=== PATIENT | male | born 1970 | race Caucasian/White ===

== ENCOUNTER 2016-08-25 13:18 | Emergency (ER) | payer MEDICARE ==
[2016-08-25 14:00] LABS: APPEARANCE CLEAR (CLEAR); BILIRUBIN NEGATIVE (NEGATIVE); COLOR AMBER (YELLOW); GLUCOSE NEGATIVE (NEGATIVE); KETONE NEGATIVE (NEGATIVE); LEUKOCYTE ESTERASE NEGATIVE (NEGATIVE); NITRITE NEGATIVE (NEGATIVE); PROTEIN NEGATIVE (NEGATIVE); UROBILINOGEN NORMAL (NORMAL)
[2016-08-25 14:47] LABS: BASOPHILS 0.3 % (0-2); EOSINOPHILS 0.9 % (0-7); HEMATOCRIT 42.8 % (42.0-54.0); HEMOGLOBIN 14.8 g/dL (13.5-17.5); IMMATURE GRANULOCYTES 0.1 % (0-5); LYMPHOCYTES 13.8 % (15-50); MCHC 34.6 g/dL (31.0-37.0); MCV 98.4 fL (80.0-100.0); MEAN PLATELET VOLUME 9.7 fL (7.4-10.4); MONOCYTES 6.6 % (2-11); NEUTROPHILS 78.3 % (40-80); PLATELET COUNT 235 10x3/uL (130-400); RBC 4.35 10x6/uL (4.20-6.10); RDW 13.2 % (11.5-14.5); WBC 9.9 10x3/uL (4.8-10.8)
[2016-08-25 15:02] LABS: ALBUMIN 3.8 g/dL (3.4-5.0); ANION GAP 12.7 mmol/L (8-16); BILIRUBIN - TOTAL 0.7 mg/dL (0.2-1.3); CALCIUM 8.9 mg/dL (8.5-10.1); CARBON DIOXIDE 26.5 mmol/L (21.0-32.0); CREATININE - SERUM 1.3 mg/dL (0.6-1.3); POTASSIUM - SERUM 4.2 mmol/L (3.5-5.1)
[2016-08-25 16:25] LABS: AMYLASE - SERUM 75 U/L (25-115); LIPASE 96 U/L (73-393)
== END 2016-08-25 16:17 | disposition home or self-care (01) ==
LOC: EDBD 13:18 → D.ER 13:18
PROVIDERS: Emergency Medicine; Nurse Practitioner Family
DX: R10.9 Unspecified abdominal pain (principal); N39.0 Urinary tract infection, site not specified

== ENCOUNTER 2018-05-09 14:39 | Emergency (ER) | payer MEDICARE ==
[~2018-05-09] VITALS: Ht 193 cm; Wt 95.5 kg
[2018-05-09 15:15] VITALS: Ht 193 cm; Wt 95.5 kg
[2018-05-09] MEDS ORDERED: VOLTAREN75 MG PO (18:45)
[2018-05-09] MEDS ORDERED: BACLOFEN20 M1 PO (18:45)
[2018-05-09 19:43] VITALS: BP 123/70
== END 2018-05-09 19:43 | disposition home or self-care (01) ==
LOC: D.ER 14:39
DX: S39.012A Strain of muscle, fascia and tendon of lower back, initial encounter (principal); X50.0XXA Overexertion from strenuous movement or load, initial encounter; Y93.89 Activity, other specified; Y92.019 Unspecified place in single-family (private) house as the place of occurrence of the external cause; M62.838 Other muscle spasm

== ENCOUNTER 2018-08-28 07:35 | Emergency (ER) | payer MEDICARE ==
[~2018-08-28] VITALS: Ht 193 cm; Wt 103.4 kg
[~2018-08-28 07:35] MED LIST: BACLOFEN20 M1 PO; VOLTAREN75 MG PO
[2018-08-28 07:38] VITALS: Ht 193 cm; Wt 103.4 kg
[2018-08-28] MEDS ORDERED: VOLTAREN75 MG PO (08:06)
[2018-08-28] MEDS ORDERED: RESTORIL15 MG PO (08:06)
[2018-08-28 08:41] VITALS: BP 128/73
== END 2018-08-28 08:42 | disposition home or self-care (01) ==
LOC: D.ER 07:35
DX: G56.01 Carpal tunnel syndrome, right upper limb (principal)

== ENCOUNTER 2018-12-30 22:06 | Emergency (ER) | payer MEDICARE ==
[~2018-12-30] VITALS: Ht 193 cm; Wt 113.6 kg
[~2018-12-30 22:06] MED LIST changes: +RESTORIL15 MG PO
[2018-12-30 22:14] VITALS: Ht 193 cm; Wt 113.6 kg
[2018-12-30 23:08] LABS: BASOPHILS 0.1 % (0-2); EOSINOPHILS 0.1 % (0-7); HEMATOCRIT 37.8 % (42.0-54.0); HEMOGLOBIN 12.9 g/dL (13.5-17.5); IMMATURE GRANULOCYTES 0.4 % (0-5); LYMPHOCYTES 7.9 % (15-50); MCH 33.4 pg (26.0-34.0); MCHC 34.1 g/dL (31.0-37.0); MCV 97.9 fL (80.0-100.0); MEAN PLATELET VOLUME 9.3 fL (7.4-10.4); MONOCYTES 5.6 % (2-11); NEUTROPHILS 85.9 % (40-80); PLATELET COUNT 250 10x3/uL (130-400); RBC 3.86 10x6/uL (4.20-6.10); RDW 13.2 % (11.5-14.5)
[2018-12-30 23:24] LABS: ALBUMIN 3.7 g/dL (3.4-5.0); ANION GAP 13.1 mmol/L (8-16); BILIRUBIN - TOTAL 0.59 mg/dL (0.2-1.3); CALCIUM 8.4 mg/dL (8.5-10.1); CARBON DIOXIDE 26.1 mmol/L (21.0-32.0); CREATININE - SERUM 1.4 mg/dL (0.6-1.3); POTASSIUM - SERUM 3.2 mmol/L (3.5-5.1); PROTEIN - SERUM 7.3 g/dL (6.4-8.2)
[2018-12-30] MEDS ORDERED: FLOMAX0.4 MG PO (23:25)
[2018-12-30] MEDS ORDERED: ULTRAM50 MG PO (23:25)
[2018-12-30] MEDS ORDERED: ZOFRAN4 MG PO (23:25)
[2018-12-30 23:27] LABS: APPEARANCE CLOUDY (CLEAR); BILIRUBIN NEGATIVE (NEGATIVE); COLOR YELLOW (YELLOW); GLUCOSE NEGATIVE (NEGATIVE); KETONE NEGATIVE (NEGATIVE); NITRITE NEGATIVE (NEGATIVE); PROTEIN 1+ mg/dL (NEGATIVE); SPECIFIC GRAVITY 1.025 (1.005-1.020); UROBILINOGEN NORMAL (NORMAL)
[2018-12-30 23:32] LABS: AMORPHOUS SEDIMENT >1+ /lpf (NONE SEEN); BACTERIA MODERATE /hpf (NEGATIVE); EPITHELIAL CELLS 0-5 /hpf (0-5); MUCUS >1+ /lpf (NONE SEEN); RED CELLS - URINE 0-5 /hpf (0-5); WHITE CELLS - URINE 0-5 /hpf (NEGATIVE)
[2018-12-31 01:10] VITALS: BP 117/69
== END 2018-12-31 01:10 | disposition home or self-care (01) ==
LOC: D.ER 22:06
PROVIDERS: Family Medicine
DX: N20.0 Calculus of kidney (principal); F17.210 Nicotine dependence, cigarettes, uncomplicated